=== PATIENT | male | born 1980 | race Caucasian/White ===

== ENCOUNTER 2019-12-05 12:53 | Outpatient (CLI) | payer BC, SELFPAY ==
--- NOTE | 2019-12-05 | CT_ITS ---
WS: [id number] CT NECK TECHNIQUE: Contrast-enhanced CT of the neck with coronal and sagittal reformatted images. CLINICAL INFORMATION: LOCALIZED SWELLING, MASS/LUMP IN NECK COMPARISON: None. DLP: 2911.[address] scans at [facility] use at least one of these dose optimization techniques: automat ed exposure control; mA and/or kV adjustment per patient size (includes targeted exams where dose is matched to clinical indication); or iterative reconstruction. FINDINGS: Parotid glands are normal. Normal submandibular glands. Normal posterior nasopharynx. Normal paraphar yngeal fat. No evidence of supraglottic or glottic mass. Normal epiglottis and piriform sinuses. Lung bases are well aerated. No evidence of subcutaneous mass or lesion in the right lower neck in the area of concern. Normal und erlying subcutaneous soft tissues and strap muscles. Slightly prominent vein in this area may corresp ond to the palpable abnormality. A few prominent level 2 jugulodigastric lymph nodes the largest measuring 9 mm not pathologically enl arged. No cervical lymphadenopathy. Mild spondylitic changes cervical spine. Impression CT/CT neck w con* [id number] IMPRESSION: 1. Salivary glands are normal. 2. No evidence of mass or lesion in the area of palpable concern right lower n jolene. Slightly prominent vessel in this area may correspond to palpable abnorma lity. 3. A few prominent level 2 cervical and jugulodigastric lymph nodes not pathol ogically enlarged. No cervical lymphadenopathy.
[2019-12-05] MEDS: iohexol 300 mg/mL 100 mL Btl IV (13:43)
== END 2019-12-05 12:54 | disposition home or self-care (01) ==
LOC: RADWPI 12:59
PROVIDERS: Family Provider Internal Medicine; PCP Internal Medicine; Visit Provider Specialist
DX: R22.1 Localized swelling, mass and lump, neck (principal)
CPT/HCPCS: 70491; Q9967